=== PATIENT | female | born 1975 | race Caucasian/White ===

== ENCOUNTER 2021-05-13 20:39 | Observation (INO) | payer OTHER, SELFPAY ==
[2021-05-13 20:42] VITALS: BP 100/61; PULSE 92; RESP 17; TEMP 36.7; O2SAT 100; BMI 21.6
--- NOTE | 2021-05-13 20:52 | ED_ITS ---
HPI - Abdominal Pain General Chief Complaint: Abdominal Pain Stated Complaint: abd pain x1 day Time Seen by Provider: 05/13/21 20:41 Source: patient Mode of arrival: Wheelchair History of Present Illness HPI narrative: 45-year-old female nonsmoker with history of polycystic ovarian syndrome presents with her in the chief complaint of severe pelvic pain for the past day and a half. She states it came on rather suddenly yesterday morning and has been persistent and slowly worsening. She did have a small break in her discomfort for a bit this afternoon but it is severe again. It is worse with palpation and motion and improves minimally with rest. She has had nausea but no vomiting. She denies any change in medications or diet. She has been passing gas and has no change in bowel habits. She denies urinary symptoms such as dysuria, frequency or urgency. She is pretty convinced her menses is preparing to start. She denies vaginal bleeding or discharge. She denies any surgical history Related Data Home Medications Medication Instructions Recorded Confirmed tranexamic acid 2 tab PO TID 05/14/21 05/14/21 Allergies Allergy/AdvReac Type Severity Reaction Status Date / Time Penicillins Allergy Intermediate Rash Verified 05/13/21 20:45 Review of Systems Review of Systems Narrative: GENERAL: Denies chills, fatigue, malaise, fever, sweats. HEENT: Denies sinus pain, ear pain, sore throat, difficulty swallowing, dizzi ness. RESPIRATORY: Denies dyspnea, cough, wheezing, hemoptysis, sputum. CARDIOVASCULAR: Denies chest pain, palpitations, orthopnea, edema, GASTROINTESTINAL: See HPI : Denies dysuria, frequency, incontinence, hematuria, urinary retention. MUSCULOSKELETAL: denies weakness, joint pain, or bony pain SKIN: Denies rash, skin lesions, or other NEUROLOGIC: Denies weakness, headache, numbness, change in speech, confusion, seizures, incoordination. PSYCHIATRIC: No concerning psychosocial issues. 12 point review of systems is negative except for those stated above Patient History Social History household members: spouse Smoking Status: Never smoker Smoking Status: Never smoker alcohol intake frequency: 0-2 drinks per day Substance Use Type: does not use Exam Narrative Exam Narrative: GENERAL: [45 year old patient appears stated age. Well-developed patient, in obvious distress, tearful, rubbing her lower abdomen HEAD: Atraumatic. Normocephalic. EYES: Pupils equal round and reactive. Extraocular motions intact. No scleral icterus. No injection or drainage. ENT: Nose without bleeding, purulent drainage. Throat without erythema, to nsillar hypertrophy or exudate. Airway patent. NECK: Trachea midline. Non tender CARDIOVASCULAR: Regular rate and rhythm without murmurs, gallops, or rubs. RESPIRATORY: Clear to auscultation. Breath sounds equal bilaterally. No wheezes, rales, or rhonchi. GASTROINTESTINAL: Abdomen soft, tender across the lower abdomen with localized peritonitis in the right lower quadrant, increased pain with heel tap and psoas. EXTREMITIES: No edema or joint tenderness. BACK: Nontender without deformity or crepitance. No flank tenderness. NEURO: AOx3. SKIN: No rash or erythema of visible areas Initial Vital Signs Initial Vital Signs: Vital Signs Temperature 98.1 F 05/13/21 20:42 Pulse Rate 92 H 05/13/21 20:42 Respiratory Rate 17 05/13/21 20:42 Blood Pressure 100/61 05/13/21 20:42 Pulse Oximetry 100 05/13/21 20:42 Course Orders Ordered: ED Orders 05/13/21 20:54 CT abdomen pelvis w con Stat 05/13/21 20:55 Complete Blood Count AUTO DIFF Stat Comprehensive Metabolic Panel Stat Lactate (Lactic Acid) Stat Lipase Stat Test Serum,Qual Stat 05/13/21 22:33 COVID19 - ADMIT ([employer] swab/PCR) Stat Acetaminophen (Acetaminophen 325 Mg Tablet) 650 mg PO Q6HR PRN PRN Reason: Fever/Mild Pain (1-3) Hydrocodone Bitart/Acetaminophen (Hydrocodone/Acet 5/325 Tablet) 1 tab PO Q4HR PRN PRN Reason: Pain, Moderate (4-6) Last Admin: 05/14/21 05:42 Dose: 1 tab Documented by: Admin: 05/13/21 23:37 Dose: 1 tab Documented by: JENNIFER Celecoxib (Celecoxib 200 Mg Capsule) 200 mg PO BID [facility] Last Admin: 05/14/21 00:45 Dose: 200 mg Documented by: PITA Lactated Ringer's (Lactated Ringers) 1,000 mls @ 100 mls/hr IV CONT [facility] Last Admin: 05/14/21 01:43 Dose: 100 mls/hr Documented by: PITA Piperacillin Sod/Tazobactam (Sod 3.375 gm/ Sodium Chloride) 100 mls @ 25 mls/hr IV Q8H [facility]ODRIGO Last Admin: 05/14/21 05:43 Dose: 25 mls/hr Documented by: Infusion: 05/14/21 04:15 Dose: 0 mls/hr Documented by: Admin: 05/14/21 00:05 Dose: 25 mls/hr Documented by: JENNIFER Naloxone HCl (Naloxone 0.4 Mg/Ml Vial) 0.2 mg IV Q2MIN PRN PRN Reason: Opiate Reversal Discontinued Medications Hydromorphone HCl (Hydromorphone 0.5 Mg Inj) 0.5 mg IV NOW ONE Stop: 05/13/21 20:51 Last Admin: 05/13/21 21:03 Dose: 0.5 mg Documented by: JENNIFER Hydromorphone HCl (Hydromorphone 0.5 Mg Inj) 0.5 mg IV NOW ONE Stop: 05/14/21 00:17 Last Admin: 05/14/21 00:18 Dose: 0.5 mg Documented by: JENNIFER Sodium Chloride (Normal Saline 0.9%) 1,000 mls @ 1,000 mls/hr IV BOLUS ONE Stop: 05/13/21 21:49 Last Infusion: 05/13/21 22:08 Dose: 0 mls/hr Documented by: Admin: 05/13/21 21:04 Dose: 1,000 mls/hr Documented by: JENNIFER Ketorolac Tromethamine (Ketorolac 30 Mg/Ml Vial) 15 mg IV NOW ONE Stop: 05/13/21 20:51 Last Admin: 05/13/21 21:04 Dose: 15 mg Documented by: JENNIFER Ondansetron HCl (Ondansetron 4 Mg/2 Ml Inj) 4 mg IV NOW ONE Stop: 05/13/21 20:53 Last Admin: 05/13/21 21:04 Dose: 4 mg Documented by: JENNIFER Consultations Consultation #1: Discussed with on-call General surgery after CT results noted Vital Signs Vital signs: Vital Signs - 8 hr 05/13/21 20:42 Temperature 98.1 F Pulse Rate 92 H Respiratory Rate 17 Blood Pressure 100/61 Pulse Oximetry 100 MDM - Abdominal Pain Lab Data Result diagrams: 05/13/21 20:55 05/13/21 20:55 Labs: Lab Results 05/13/21 05/13/21 05/13/21 Range/Units 20:55 20:55 20:55 WBC 14.5 H (4.5-11.0) X10^3/uL RBC 3.86 L (4.0-5.2) X10^6/uL Hgb 12.0 (12.0-16.0) g/dL Hct 34.9 L (36-46) % MCV 90.3 (80-100) fL MCH 31.0 (26-34) PG MCHC 34.3 (30-36) % RDW 12.7 (11.6-14.8) % Plt Count 149 L (150-400) X10^3/uL Neut % (Auto) 85.4 H (50-75) % Lymph % (Auto) 8.8 L (25-40) % [place] % (Auto) 5.3 (3-14) % Eos % (Auto) 0.1 L (2-4) % Baso % (Auto) 0.4 (0-2) % Neut # (Auto) 41963 H (5822-9710) /uL Lymph # (Auto) 1300 (1026-9996) /uL [place] # (Auto) 800 (0-900) /uL Eos # (Auto) 0 (0-450) /uL Baso # (Auto) 100 (0-100) /uL Sodium 130 L (137-145) mmol/L Potassium 3.3 L (3.4-5.1) mmol/L Chloride 98 (98-107) mmol/L Carbon Dioxide 27 (22-32) mmol/L BUN 8 (7-17) mg/dL Creatinine 0.76 (0.52-1.04) mg/dL Estimated GFR > 60.0 (>60) mL/min BUN/Creatinine Ratio 10.5 (6-22) Glucose 121 H (70-100) mg/dL Lactate (0.7-2.1) mmol/L Calcium 9.2 (8.4-10.2) mg/dL Total Bilirubin 0.6 (0.2-1.3) mg/dL AST 22 (14-36) IU/L ALT 14 (<35) IU/L Alkaline Phosphatase 56 (38-126) U/L Total Protein 7.0 (6.3-8.2) g/dL Albumin 4.2 (3.5-5.0) g/dL Globulin 2.8 (1.7-4.1) g/dL Albumin/Globulin Ratio 1.5 (1.0-2.8) Lipase 85 (23-300) U/L Serum , Qual Negative (Negative) 05/13/21 Range/Units 20:55 WBC (4.5-11.0) X10^3/uL RBC (4.0-5.2) X10^6/uL Hgb (12.0-16.0) g/dL Hct (36-46) % MCV (80-100) fL MCH (26-34) PG MCHC (30-36) % RDW (11.6-14.8) % Plt Count (150-400) X10^3/uL Neut % (Auto) (50-75) % Lymph % (Auto) (25-40) % [place] % (Auto) (3-14) % Eos % (Auto) (2-4) % Baso % (Auto) (0-2) % Neut # (Auto) (9719-7001) /uL Lymph # (Auto) (7248-7648) /uL [place] # (Auto) (0-900) /uL Eos # (Auto) (0-450) /uL Baso # (Auto) (0-100) /uL Sodium (137-145) mmol/L Potassium (3.4-5.1) mmol/L Chloride (98-107) mmol/L Carbon Dioxide (22-32) mmol/L BUN (7-17) mg/dL Creatinine (0.52-1.04) mg/dL Estimated GFR (>60) mL/min BUN/Creatinine Ratio (6-22) Glucose (70-100) mg/dL Lactate 1.9 (0.7-2.1) mmol/L Calcium (8.4-10.2) mg/dL Total Bilirubin (0.2-1.3) mg/dL AST (14-36) IU/L ALT (<35) IU/L Alkaline Phosphatase (38-126) U/L Total Protein (6.3-8.2) g/dL Albumin (3.5-5.0) g/dL Globulin (1.7-4.1) g/dL Albumin/Globulin Ratio (1.0-2.8) Lipase (23-300) U/L Serum , Qual (Negative) Point of care testing: Urine Dip Bedside Urine Glucose Negative Bedside Urine Bilirubin - Negative Bedside Urine Ketone ++ 40 Urine Specific [place] 1.010 Bedside Urine Occult Blood - Negative Bedside Urine pH 7 Bedside Urine Protein - Negative Bedside Urine Urobilinogen - Negative Bedside Urine Nitrite - Negative Bedside Urine Leukocytes - Negative Esterase Imaging Data CT scan - abdomen/pelvis: Radiologist's Impression: [address] [address] [address] Scan Report Signed Patient: Collette Morales MR#: [id number] : 1975 Acct:[id number] Age/Sex: 45 / F Date of Service: 05/13/21 Loc: ED Accession Number: [id number] ?? Procedure: CT abdomen pelvis w con Ordering Provider: Jose Ramon Johnson D.O. PROCEDURE:? CT ABDOMEN PELVIS W CON ? INDICATIONS:? severe pelvic pain, localized peritonitis ? TECHNIQUE:? After the administration of intravenous contrast, axial sections acquired from the lung bases to the pubic symphysis.? Coronal and sagittal reformats were performed.? For radiation dose reduction, the following was used:? automated exposure control, adjustment of mA and/or kV according to patient size.? ? COMPARISON:? None. ? FINDINGS:? Image quality:? Excellent.? ? Lung bases:? Unremarkable. Heart:? No significant findings. ? ABDOMEN: Liver:? Unremarkable.? ? Gallbladder:? Unremarkable Biliary ducts:? Unremarkable.? ? Pancreas:? Unremarkable.? ? Spleen:? Unremarkable.? ? Adrenal Glands:? Unremarkable.? ? Kidneys and Ureters:? Unremarkable.? ? ? Stomach and Bowel:? Stomach appears unremarkable.? There are marked inflammatory changes in the right lower quadrant of the abdomen with inflammation and wall thickening involving the cecum.? There are inflammatory changes of the terminal ileum.? The appendix also appears distended and inflamed with possible appendicolith near the tip of the appendix.? Inflammatory changes noted throughout the right lower quadrant with associated reactive free fluid and wall thickening of adjacent segment of small bowel.? No definite evidence for perforation or abscess formation.? No evidence for bowel obstruction. ? Peritoneum:? Moderate amount of free fluid seen throughout the lower abdomen and pelvis.? No evidence for peritoneal enhancement or thickening.? No free air.? ? Ventral Wall: ? No hernias.? Abdominal Nodes:? No retroperitoneal or mesenteric adenopathy by size criteria.? Vessels:? Aorta and inferior vena cava are normal in size.? ? PELVIS: Pelvic Organs:? The uterus appears mildly enlarged.? This may be secondary to inflammatory changes seen in the pelvis and right lower quadrant.? No definite adnexal/ovarian mass lesions identified.? Likely bilateral ovarian follicles/cysts.? Bladder:? Unremarkable.? ? Pelvic Nodes: No enlarged lymph nodes.? Miscellaneous: No hernias are seen. ? ? ? Bones:? Unremarkable. ? ? ? IMPRESSION:? Marked inflammatory changes of the right lower quadrant and pelvis likely related to suspected acute appendicitis.? No free air identified.? No definite abscess seen.? Inflammatory changes appear to involve multiple segments of adjacent small bowel as the epicenter of findings is near the cecum and appendix. ? Possible inflammatory changes the uterus likely related to adjacent inflammatory process. ?Consider further evaluation with pelvic ultrasound.? ? Findings were discussed with Dr. Johnson at 2235 hrs ? ? Dictated by: Timmy Sosa M.D. on 05/13/2021 at 22:20 ? ? Approved by: Timmy Sosa M.D. on 05/13/2021 at 22:35 ? Discharge Plan Departure Patient Disposition: Admitted As Inpatient Clinical Impression: Appendicitis Admit Date/Time: 05/13/21 22:50 Admit Provider: Elisa Ghotra
--- NOTE | 2021-05-13 20:54 | DI.CT.S_ITS ---
PROCEDURE: CT ABDOMEN PELVIS W CON INDICATIONS: severe pelvic pain, localized peritonitis TECHNIQUE: After the administration of intravenous contrast, axial sections acquired from the lung bases to the pubic symphysis. Coronal and sagittal reformats were performed. For radiation dose reduction, the following was used: automated exposure control, adjustment of mA and/or kV according to patient size. COMPARISON: None. FINDINGS: Image quality: Excellent. Lung bases: Unremarkable. Heart: No significant findings. ABDOMEN: Liver: Unremarkable. Gallbladder: Unremarkable Biliary ducts: Unremarkable. Pancreas: Unremarkable. Spleen: Unremarkable. Adrenal Glands: Unremarkable. Kidneys and Ureters: Unremarkable. Stomach and Bowel: Stomach appears unremarkable. There are marked inflammatory changes in the right lower quadrant of the abdomen with inflammation and wall thickening involving the cecum. There are inflammatory changes of the terminal ileum. The appendix also appears distended and inflamed with possible appendicolith near the tip of the appendix. Inflammatory changes noted throughout the right lower quadrant with associated reactive free fluid and wall thickening of adjacent segment of small bowel. No definite evidence for perforation or abscess formation. No evidence for bowel obstruction. Peritoneum: Moderate amount of free fluid seen throughout the lower abdomen and pelvis. No evidence for peritoneal enhancement or thickening. No free air. Ventral Wall: No hernias. Abdominal Nodes: No retroperitoneal or mesenteric adenopathy by size criteria. Vessels: Aorta and inferior vena cava are normal in size. PELVIS: Pelvic Organs: The uterus appears mildly enlarged. This may be secondary to inflammatory changes seen in the pelvis and right lower quadrant. No definite adnexal/ovarian mass lesions identified. Likely bilateral ovarian follicles/cysts. Bladder: Unremarkable. Pelvic Nodes: No enlarged lymph nodes. Miscellaneous: No hernias are seen. Bones: Unremarkable. IMPRESSION: Marked inflammatory changes of the right lower quadrant and pelvis likely related to suspected acute appendicitis. No free air identified. No definite abscess seen. Inflammatory changes appear to involve multiple segments of adjacent small bowel as the epicenter of findings is near the cecum and appendix. Possible inflammatory changes the uterus likely related to adjacent inflammatory process. Consider further evaluation with pelvic ultrasound. Findings were discussed with Dr. Johnson at 2235 hrs Dictated by: Timmy Sosa M.D. on 05/13/2021 at 22:20 Approved by: Timmy Sosa M.D. on 05/13/2021 at 22:35
[2021-05-13] MEDS: HYDROMORPHONE 0.5 MG INJ IV (21:03)
[2021-05-13] MEDS: KETOROLAC 30 MG/ML VIAL 15 MG IV (21:04)
[2021-05-13] MEDS: SODIUM CHLORIDE 0.9% 1,000 ML 1000 ML IV (21:04)
[2021-05-13] MEDS: ONDANSETRON 4 MG/2 ML INJ IV (21:04)
[2021-05-13 21:06] LABS: Add Manual Diff / Slide Review NO; Basophils Absolute Auto 100 /uL (0-100); Basophils Percent Auto 0.4 % (0-2); Eosinophils Absolute Auto 0 /uL (0-450); Eosinophils Percent Auto 0.1 % (2-4); Hematocrit 34.9 % (36-46); Lymphocytes Absolute Auto 1300 /uL (1100-4500); Lymphocytes Percent Auto 8.8 % (25-40); Mean Corpuscular HGB Conc 34.3 % (30-36); Mean Corpuscular Volume 90.3 fL (80-100); Monocytes Absolute Auto 800 /uL (0-900); Monocytes Percent Auto 5.3 % (3-14); Neutrophils Absolute Auto 12400 /uL (1500-7000); Neutrophils Percent Auto 85.4 % (50-75); Platelet Count 149 X10^3/uL (150-400); Red Blood Cell Count 3.86 X10^6/uL (4.0-5.2); Red Cell Distribution Width 12.7 % (11.6-14.8); White Blood Cell Count 14.5 X10^3/uL (4.5-11.0)
[2021-05-13 21:19] LABS: Lactate (Lactic Acid) 1.9 mmol/L (0.7-2.1)
[2021-05-13 21:20] LABS: Alanine Aminotransferase 14 IU/L (<35); Albumin 4.2 g/dL (3.5-5.0); Albumin Globulin Ratio 1.5 (1.0-2.8); Alkaline Phosphatase 56 U/L (38-126); Aspartate Aminotransferase 22 IU/L (14-36); BUN Creatinine Ratio 10.5 (6-22); Bilirubin Total 0.6 mg/dL (0.2-1.3); Blood Urea Nitrogen 8 mg/dL (7-17); Calcium 9.2 mg/dL (8.4-10.2); Carbon Dioxide 27 mmol/L (22-32); Chloride 98 mmol/L (98-107); Estimated Glomerular Filt Rate > 60.0 mL/min (>60); Globulin 2.8 g/dL (1.7-4.1); Glucose 121 mg/dL (70-100); HEMOLYSIS < 15 (0-50); Lipase 85 U/L (23-300); Potassium 3.3 mmol/L (3.4-5.1); Sodium 130 mmol/L (137-145)
[2021-05-13 21:28] LABS: Pregnancy Test Serum,Qual Negative (Negative)
--- NOTE | 2021-05-13 21:51 | PC.NURSE ---
to ct per stretcher
[2021-05-13 23:00] VITALS: O2SAT 95
[2021-05-13] MEDS: HYDROCODONE/ACET 5/325 TABLET 1 TAB PO (23:37)
[2021-05-13 23:46] VITALS: BMI 21.6
[2021-05-14] VITALS (19 sets, daily range): BP systolic 86–110; BP diastolic 46–86; PULSE 55–103; RESP 13–21; TEMP 36.2–37.6; O2SAT 95–100; BMI 21.6
--- NOTE | 2021-05-14 | PATH_ITS ---
[facility] Accession Number: [id number] . 01 Material submitted: . appendix - APPENDIX . 02 Diagnosis: Appendix, Appendectomy: Perforated acute appendicitis with serositis. No evidence of neoplasm. MRV 05/19/2021 1053 Local . 02 Electronically signed: . Alfonso Gaitan MD, PhD, Pathologist NPI- [id number] . 01 Gross description: . The specimen is received in formalin labeled with the patient's name and appendix is a vermiform appendix, which measures 6.5 cm in length x 1.0 cm in maximum diameter with an attached mesoappendix, which measures 6.5 x 1.5 cm. The serosa of the appendix is red-brown, hemorrhagic and covered with gonsalez-yellow fibrinous type exudate focally. A possible perforation is identified 2.5 cm from the proximal end. The lumen is slightly dilated and is filled with red hemorrhagic tissue. The wall has an average thickness of 0.2 cm. No discrete masses are identified. The periappendiceal soft tissue has a yellow fatty cut surface with areas of hemorrhage. Also, received in the container is another fragment which is stapled and measures 1.5 x 1.0 x 0.7 cm. This appears to be the proximal stapled resection margin. Shear Operator sections are submitted as follows: . A1 - Proximal resection margin en face (blue ink), one piece. A2 - Shear Operator cross sections, two pieces. A3 - Longitudinal section at the tip of the appendix, one piece. ([id number]) /[facility] 05/17/2021 1621 Local . 02 Pathologist provided ICD-10: K35.20 . 02 CPT . 509996 Performed at: 01 [facility] [address] [place] [address], [place], [place] [id number] MD Toby Roland MD Phone: [phone] Performed at: 02 [facility] [address] [place] [id number] MD Aaliyah Arnold MD Phone: [phone]
[2021-05-14] MEDS: PIPERACILLIN/TAZO 3.375 GM in SODIUM CHLORIDE 0.9% 100 ML 25 ML IV ×2 (00:05→05:43)
[2021-05-14] MEDS: HYDROMORPHONE 0.5 MG INJ (00:15)
[2021-05-14] MEDS: HYDROMORPHONE 0.5 MG INJ IV ×3 (00:18→21:35)
--- NOTE | 2021-05-14 00:24 | PC.NURSE ---
report called to Sandra
[2021-05-14] MEDS: CELECOXIB 200 MG CAPSULE PO ×3 (00:45→21:36)
[2021-05-14] MEDS: LACTATED RINGERS 1,000 ML 100 ML IV ×2 (01:43→14:46)
[2021-05-14 02:36] LABS: COVID19 - ADMIT (NP swab/PCR) Negative (Negative)
[2021-05-14] MEDS: HYDROCODONE/ACET 5/325 TABLET 1 TAB PO ×3 (05:42→14:46)
--- NOTE | 2021-05-14 09:21 | PM.HP.1 ---
History of Present Illness History of Present Illness Date Patient Seen: 05/14/21 Time Patient Seen: 09:21 Date of Onset of Symptoms: 05/13/21 Chief complaint: abd pain x1 day Narrative: Abdominal pain for over 36 hrs. She thought it was mentral pain initially until it worsened and localized in the RLQ. Nausea, anorexia, no diarrhea or emesis. Her does have unusually heavy periods that require TXA. Patient History Family & Social History Social History: household members spouse Prior Living Arrangements House Safety & Behavioral: Feels Safe in Current Yes Environment Been Physically Hurt or No Threatened By a Person Suicidal Ideation Description None Suicide Plan Description No Plan Tobacco & Substance use: Smoking Status Never smoker alcohol intake frequency 0-2 drinks per day Substance Use Type does not use Meds Home Medications and Allergies Home Medications Medication Instructions Recorded Confirmed Type tranexamic acid 2 tab PO TID 05/14/21 05/14/21 History Allergies Allergy/AdvReac Type Severity Reaction Status Date / Time Penicillins Allergy Intermediate Rash Verified 05/13/21 20:45 Review of Systems Review of Systems ROS: Yes All systems reviewed with the patient and are negative except as otherwise documented Exam Vital Signs (past 8 hours): - 05/14/21 06:00 05/14/21 09:10 Temperature 98.7 F Pulse Rate 67 Respiratory Rate 16 Blood Pressure 94/58 L Pulse Oximetry 98 97 Oxygen Delivery Method Room Air Oxygen Flow Rate 0 Const General: cooperative Nutritional Appearance: underweight Orientation: alert and oriented x3 HENLA Head: normocephalic and atraumatic Ears: hearing grossly normal bilaterally Face and sinus: normal facial exam Eyes Periorbital: periorbital findings normal Sclera: sclerae normal Neck Neck: trachea midline Chest Chest: normal inspection of the chest Resp Effort & Inspection: normal respiratory effort and able to speak in complete sentences Cardio Rate: tachycardic Rhythm: regular rhythm GI Palpation: tender (lower abdominal tenderness to palpation right greater than left. ) Skin General: no rashes or lesions noted and elasticity normal Neuro General: patient alert and patient oriented x3 Cognition: normal cognition Speech: speech normal Extrem General: full ROM Psych Appearance: grossly normal Affect: normal affect Attitude: cooperative Judgment: judgment good Objective Labs Result Diagrams: 05/13/21 20:55 05/13/21 20:55 Labs: Laboratory Results - last 24 hr 05/13/21 05/13/21 05/13/21 20:55 20:55 20:55 WBC 14.5 H RBC 3.86 L Hgb 12.0 Hct 34.9 L MCV 90.3 MCH 31.0 MCHC 34.3 RDW 12.7 Plt Count 149 L Neut % (Auto) 85.4 H Lymph % (Auto) 8.8 L [place] % (Auto) 5.3 Eos % (Auto) 0.1 L Baso % (Auto) 0.4 Neut # (Auto) 17559 H Lymph # (Auto) 1300 [place] # (Auto) 800 Eos # (Auto) 0 Baso # (Auto) 100 Sodium 130 L Potassium 3.3 L Chloride 98 Carbon Dioxide 27 BUN 8 Creatinine 0.76 Estimated GFR > 60.0 BUN/Creatinine Ratio 10.5 Glucose 121 H Lactate Calcium 9.2 Total Bilirubin 0.6 AST 22 ALT 14 Alkaline Phosphatase 56 Total Protein 7.0 Albumin 4.2 Globulin 2.8 Albumin/Globulin Ratio 1.5 Lipase 85 Serum , Qual Negative SARS-CoV-2 (PCR) 05/13/21 05/14/21 20:55 00:10 WBC RBC Hgb Hct MCV MCH MCHC RDW Plt Count Neut % (Auto) Lymph % (Auto) [place] % (Auto) Eos % (Auto) Baso % (Auto) Neut # (Auto) Lymph # (Auto) [place] # (Auto) Eos # (Auto) Baso # (Auto) Sodium Potassium Chloride Carbon Dioxide BUN Creatinine Estimated GFR BUN/Creatinine Ratio Glucose Lactate 1.9 Calcium Total Bilirubin AST ALT Alkaline Phosphatase Total Protein Albumin Globulin Albumin/Globulin Ratio Lipase Serum , Qual SARS-CoV-2 (PCR) Negative Assessment & Plan Assessment & Plan narrative: Ruptured appendicitis. abnormal thickened uterine wall (followed by COMMUNITY OUTREACH COORDINATOR). negative Plan: Lap appy and antibiotics as appropriate. There is a possibility that delay results in a more complex future surgery or treatment. COVID-19 COVID-19 status: Negative Time Spent With Patient Time with patient: 30 to 49 minutes with 50% spent counseling/coordinating care Critical Care time: I spent a total of [] minutes of critical care time on this patient's care today; this time is exclusive of procedural time. Quality VTE Deep Vein Thrombosis/Pulmonary Embolism Present on Admission: No
[2021-05-14] MEDS: LACTATED RINGERS 1,000 ML 42 ML IV ×2 (10:24→12:17)
--- NOTE | 2021-05-14 11:25 | SUR.OPER ---
Supine on padded OR bed, head on pillow, arms padded and tucked at sides, legs uncrossed, safety belt at thigh, tape over blanket over lower legs .
[2021-05-14] MEDS: BUPIVACAINE 0.25% (PF) 30 ML, EPINEPHrine 0.15 MG INJ (11:31)
--- NOTE | 2021-05-14 11:39 | SUR.OPER ---
2 RINGS IN LABELED CONTAINER TO PACU WITH PATIENT WELL GLASSES.
--- NOTE | 2021-05-14 12:04 | PM.OP.1 ---
Operative Date/Time/Diagnoses Date of procedure: 05/14/21 Time of procedure: 12:04 Pre-op diagnosis: ruptured appendicitis Post-op diagnosis: same Procedure & Clinicians Procedure: Lap appy Same procedure as scheduled: Yes Indications: Ruptured appendicitis Surgeon: Elisa Ghotra Click Yes if Unassisted: Yes Anesthesia Type: General Operative Notes Findings: Ruptured appendicitis Closure Type: primary Specimen(s): other (Appendix) Applied: drain(s) (15 Slovenian Yoel drain) Estimated Blood Loss (mL): 10 Procedure in detail: Preop diagnosis: Ruptured appendicitis Postop diagnosis: Same Operative procedure: Laparoscopic appendectomy Anesthetic: General with ET tube intubation Findings: Ruptured appendicitis, healthy base of the appendix. Urinary retention Procedure: Patient placed in a supine position. Prepped and draped sterile fashion. Infraumbilical port site was placed using an open technique and a 12 mm port. Insufflation began all the ports were placed under direct vision including a 5 mm port in the suprapubic area and a 5 mm port in left lateral abdomen. Appendix was identified and lifted cephalad for exposure. There was a gaping hole on the medial aspect of the appendix which filled fecal material into the local site. This was retrieved and placed into the specimen bag along with the appendix at the appropriate time. Mesentery was taken down with electrocautery. Base appendix was amputated with a LIZZ stapling device. Appendix and associated stool balls were placed into an Endo-Catch bag and pulled through the infraumbilical port site intact. I irrigated the abdomen to a clear return. And then placed a 15 Slovenian drain into the pelvis looping up to the operative site. This was brought out through the existing suprapubic port. Suture to the skin with 3-0 nylon. I then removed all ports and began closure. Closure consisted of interrupted 0 Vicryl for fascial closure of the infraumbilical port site. Skin was closed with a running 4-0 Vicryl. Steri-Strips and sterile dressings were placed. Patient was awakened, extubated, taken to recovery room in stable condition. Needle, instrument, sponge counts were correct Blood loss: 10 mL Specimen: Appendix Complications: none Post-operative Condition: stable Disposition: PACU
[2021-05-14] MEDS: HYDROMORPHONE 2 MG INJ IV (12:16)
[2021-05-14] MEDS: ONDANSETRON 4 MG/2 ML INJ IV (12:17)
--- NOTE | 2021-05-14 12:38 | SUR.PHASEI ---
Patient responsive to verbal stimuli; vss; pain 3/10; denies any nausea; emptied 150 mls of pus-appearing output from OTTONIEL drain; abdomen soft and flat; small amount of drainage noted to abdominal dressing;
--- NOTE | 2021-05-14 13:23 | PC.NURSE ---
Pt returned from PACU. A/O, but drowsy, denies pain, denies nausea. Drsgs to abdomen intact left one with yellow drainage. OTTONIEL with mod amt of yellow drainage. IVF reconnected. Call light within reach.
--- NOTE | 2021-05-14 14:18 | CM.IDA ---
Initial DCP Assessment Note Pt is a 45 yo female, resident of [place], admitted for appendicitis and taken to the OR this morning for lap appy by Dr Ghotra PCP: TRACIE Robertson, [place] Payer: [facility] No needs expected upon DC according to RN, supportive spouse to transport home when medically cleared. EVELIO Corrales Discharge Planning/Care Management CM Discharge Assessment Start: 05/14/21 14:14 Freq: Status: Active Protocol: Document 05/14/21 14:14 GLEN (Rec: 05/14/21 14:18 [id number]) Discharge Planning Assessment Assigned Manager Route EVELIO Cortes DPOA/Assigned Designee Name [place], spouse Contact Information [phone] Advance Directives? No History Provided By Medical Record Prior Living Arrangements House Household Members spouse Type of transporation used prior to Drives own vehicle admit Independent with ADL's Yes Is patient alert and oriented? Yes Barriers to Discharge No Comment Indp and active at baseline, Home w/spouse, no needs expected Discharge Plan Home Transportation Arrangement Spouse Referrals Initiated None needed
[2021-05-14] MEDS: HYDROCODONE/ACET 5/325 TABLET 2 TAB PO ×2 (16:43→23:35)
[2021-05-14] MEDS: CIPROFLOXACIN 250 MG TABLET 500 MG PO (21:40)
[2021-05-15] MEDS: HYDROMORPHONE 0.5 MG INJ IV ×2 (04:57→11:42)
[2021-05-15 05:47] VITALS: BP 93/51; PULSE 55; RESP 18; TEMP 36.8; O2SAT 97
[2021-05-15 05:55] LABS: Add Manual Diff / Slide Review NO; Basophils Absolute Auto 0 /uL (0-100); Basophils Percent Auto 0.1 % (0-2); Eosinophils Absolute Auto 0 /uL (0-450); Eosinophils Percent Auto 0.1 % (2-4); Hematocrit 30.4 % (36-46); Hemoglobin 10.6 g/dL (12.0-16.0); Lymphocytes Absolute Auto 300 /uL (1100-4500); Lymphocytes Percent Auto 3.5 % (25-40); Mean Corpuscular HGB Conc 34.8 % (30-36); Mean Corpuscular Hemoglobin 31.7 PG (26-34); Mean Corpuscular Volume 90.9 fL (80-100); Monocytes Absolute Auto 400 /uL (0-900); Monocytes Percent Auto 4.6 % (3-14); Neutrophils Absolute Auto 7800 /uL (1500-7000); Neutrophils Percent Auto 91.7 % (50-75); Platelet Count 114 X10^3/uL (150-400); Red Blood Cell Count 3.34 X10^6/uL (4.0-5.2); Red Cell Distribution Width 12.9 % (11.6-14.8); White Blood Cell Count 8.5 X10^3/uL (4.5-11.0)
[2021-05-15] MEDS: CIPROFLOXACIN 250 MG TABLET 500 MG PO (07:26)
[2021-05-15 09:07] VITALS: BP 95/50; PULSE 60; RESP 16; TEMP 36.6; O2SAT 95
[2021-05-15 09:45] VITALS: PULSE 60; RESP 16; O2SAT 95
[2021-05-15 10:00] VITALS: O2SAT 95
[2021-05-15] MEDS: CELECOXIB 200 MG CAPSULE PO (10:05)
[2021-05-15] MEDS: HYDROCODONE/ACET 5/325 TABLET 2 TAB PO (10:06)
--- NOTE | 2021-05-15 10:14 | PM.DS.1 ---
History of Present Illness History of Present Illness Date Patient Seen: 05/15/21 Time Patient Seen: 10:14 Date of Onset of Symptoms: 05/15/21 Chief complaint: abd pain x1 day Narrative: Abdominal pain for over 36 hrs. She thought it was mentral pain initially until it worsened and localized in the RLQ. Nausea, anorexia, no diarrhea or emesis. Her does have unusually heavy periods that require TXA. Discharge Providers Provider Date of admission: 05/13/21 22:50 Discharge Date: 05/15/21 Discharge provider: Elisa Ghotra MD Summary Hospital Course Discharge Diagnosis: ruptured appendicitis Hospital Course: IV antibiotics, Lap Appy with drain placement. Status at Discharge Cognitive/behavioral status at discharge: calm Functional status at discharge: independent ambulation Overall status at discharge: patient is progressing back to baseline Time Spent with Patient Time spent: Less than 30 minutes Exam Vital Signs (past 8 hours): - 05/15/21 05:47 05/15/21 09:07 Temperature 98.2 F 97.8 F Pulse Rate 55 L 60 Respiratory Rate 18 16 Blood Pressure 93/51 L 95/50 L Pulse Oximetry 97 95 Oxygen Delivery Method Room Air Oxygen Flow Rate 0 Narrative Exam Narrative: abdomen is soft, wound intact. drain is murky. WBC is 8. no fever. Objective Labs Result Diagrams: 05/15/21 04:45 05/13/21 20:55 Labs: Laboratory Results - last 24 hr 05/15/21 04:45 WBC 8.5 RBC 3.34 L Hgb 10.6 L Hct 30.4 L MCV 90.9 MCH 31.7 MCHC 34.8 RDW 12.9 Plt Count 114 L Neut % (Auto) 91.7 H Lymph % (Auto) 3.5 L Mckenzie % (Auto) 4.6 Eos % (Auto) 0.1 L Baso % (Auto) 0.1 Neut # (Auto) 7800 H Lymph # (Auto) 300 L Mckenzie # (Auto) 400 Eos # (Auto) 0 Baso # (Auto) 0 PFSH Social History household members: spouse Smoking Status: Never smoker Discharge Assessment & Plan Assessment and Plan Assessment: ruptured appendicitis Plan of Treatment: no complications after lap appy home today with drain drain removal in office later this week 5 days Cipro Discharge Plan Discharge Plan Patient Disposition: Home Discharge orders & Medications Prescriptions: New celecoxib [Celebrex] 200 mg Capsule 200 mg PO BID Qty: 20 0RF hydrocodone-acetaminophen 5-325 mg Tablet 1 tab PO Q4HR PRN (Reason: Pain, Moderate (4-6)) Qty: 20 0RF ciprofloxacin HCl 250 mg Tablet 500 mg PO 0700,2100 Qty: 10 0RF Continued tranexamic acid 650 mg tablet 2 tab PO TID 0RF Diet/Activity/Treatments Diet: Diet as Tolerated Activity: no lifting greater than 15 lbs for 4 weeks Cold/Heat Therapy: ice pack to abdomen for comfort Other treatments: empty drain daily and as needed. Follow up 1-2 days for drain removal Skin/Wound/Dressing Care Skin care: can shower anytime. no soaking in bath for 2 weeks Dressing: remove outer dressing anytime and leave steristrips on for 10 days. Visit Report/Discharge Packet Instructions: DI for an Appendectomy Stand Alone Forms: Surgery Discharge Discharge Data Attending Provider: Elisa Ghotra VTE Deep Vein Thrombosis/Pulmonary Embolism Present on Admission: No
== END 2021-05-15 13:00 | disposition home or self-care (01) ==
LOC: ED 20:50 → AC 22:51
PROVIDERS: Admitting Provider Surgery; Emergency Provider Emergency Medicine; Referring Provider Emergency Medicine; Visit Provider Surgery
PROC: 0DTJ4ZZ Resection of Appendix, Percutaneous Endoscopic Approach (ICD-10-PCS; CPT 44970; principal; 2021-05-14 11:30)
DX: K35.32 Acute appendicitis with perforation, localized peritonitis, and gangrene, without abscess (principal); R33.9 Retention of urine, unspecified; Z20.822 Contact with and (suspected) exposure to COVID-19
CPT/HCPCS: 44970; 36415; 74177; 80053; 81003; 83605; 83690; 84703; 85025; 87635; 94760; 96361; 96365; 96366; 96375; 96376; 99219; 99284; C9803; G0378; J0171; J1100; J1170; J1885; J2250; J2405; J2543; J2704; J3010; Q9967

== ENCOUNTER → 2021-05-18 12:18 | Outpatient (CLI) | payer OTHER, SELFPAY ==
[2021-05-13 23:46] VITALS: BMI 21.6
[2021-05-18 13:41] LABS: Add Manual Diff / Slide Review NO; Basophils Absolute Auto 0 /uL (0-100); Basophils Percent Auto 0.5 % (0-2); Eosinophils Absolute Auto 100 /uL (0-450); Eosinophils Percent Auto 1.2 % (2-4); Hemoglobin 11.8 g/dL (12.0-16.0); Lymphocytes Absolute Auto 500 /uL (1100-4500); Lymphocytes Percent Auto 9.1 % (25-40); Mean Corpuscular HGB Conc 33.7 % (30-36); Mean Corpuscular Hemoglobin 30.5 PG (26-34); Mean Corpuscular Volume 90.4 fL (80-100); Monocytes Absolute Auto 600 /uL (0-900); Monocytes Percent Auto 10.4 % (3-14); Neutrophils Absolute Auto 4700 /uL (1500-7000); Neutrophils Percent Auto 78.8 % (50-75); Platelet Count 271 X10^3/uL (150-400); Red Blood Cell Count 3.87 X10^6/uL (4.0-5.2); Red Cell Distribution Width 13.3 % (11.6-14.8)
== END ==
PROVIDERS: PCP Physician Assistant Medical; Referring Provider Surgery; Visit Provider Surgery
DX: K37 Unspecified appendicitis (principal)
CPT/HCPCS: 36415; 85025

== ENCOUNTER → 2021-05-26 10:29 | Outpatient (CLI) | payer OTHER, SELFPAY ==
[2021-05-13 23:46] VITALS: BMI 21.6
[2021-05-26 13:01] LABS: Add Manual Diff / Slide Review NO; Basophils Absolute Auto 0 /uL (0-100); Basophils Percent Auto 0.4 % (0-2); Eosinophils Absolute Auto 0 /uL (0-450); Eosinophils Percent Auto 0.6 % (2-4); Hematocrit 33.6 % (36-46); Hemoglobin 11.4 g/dL (12.0-16.0); Lymphocytes Absolute Auto 400 /uL (1100-4500); Lymphocytes Percent Auto 4.6 % (25-40); Mean Corpuscular HGB Conc 33.9 % (30-36); Mean Corpuscular Hemoglobin 30.6 PG (26-34); Mean Corpuscular Volume 90.3 fL (80-100); Monocytes Absolute Auto 700 /uL (0-900); Monocytes Percent Auto 8.6 % (3-14); Neutrophils Absolute Auto 7300 /uL (1500-7000); Neutrophils Percent Auto 85.8 % (50-75); Platelet Count 447 X10^3/uL (150-400); Red Blood Cell Count 3.72 X10^6/uL (4.0-5.2); White Blood Cell Count 8.5 X10^3/uL (4.5-11.0)
== END ==
PROVIDERS: PCP Physician Assistant Medical; Referring Provider Surgery; Visit Provider Surgery
DX: K37 Unspecified appendicitis (principal)
CPT/HCPCS: 36415; 85025

== ENCOUNTER → 2021-05-26 11:31 | Outpatient (CLI) | payer OTHER, SELFPAY ==
[2021-05-13 23:46] VITALS: BMI 21.6
--- NOTE | 2021-05-26 11:32 | DI.CT.S_ITS ---
PROCEDURE: CT ABDOMEN PELVIS W CON INDICATIONS: Postop abscess rule out TECHNIQUE: After the administration of oral and intravenous contrast, axial sections were acquired from the lung bases to the pubic symphysis. Coronal and sagittal reformats were performed. For radiation dose reduction, the following was used: automated exposure control, adjustment of mA and/or kV according to patient size. COMPARISON:[facility], CT, CT ABDOMEN PELVIS W CON, 05/13/2021, 21:50. FINDINGS: Image quality: Excellent. Lung bases: Unremarkable. Heart: No significant findings. ABDOMEN: Liver: Unremarkable. Gallbladder: Unremarkable. Biliary ducts: Unremarkable. Pancreas: Unremarkable. Spleen: Unremarkable. Adrenal Glands: Unremarkable. Kidneys and Ureters: Unremarkable. Stomach and Bowel: Stomach appears unremarkable. Interval postsurgical changes of appendectomy. There is inflammatory stranding in the right lower quadrant, extending into the pelvis, likely related to recent surgery. There are 2 irregular, possibly rim enhancing collections identified in the lower pelvis measuring 3.2 x 1.8 cm for the more anterior collection and 3.5 by 3.2 cm the more posterior collection (image 64/series 2). No internal locules of gas. No definite communication with the surgical site. These may represent fluid-filled segments of bowel as there are multiple other segments of adjacent bowel demonstrating minimal thickening and increased enhancement. These may represent secondary reactive changes from recent surgery versus reaction from prior appendicitis. No free air is noted. Peritoneum: No abnormal intraperitoneal fluid. No free air. Ventral Wall: Postsurgical changes of the anterior abdominal wall from recent appendectomy. There is a rim enhancing fluid collection noted superficially in the subcutaneous soft tissues near the level of the umbilicus measuring approximately 3.0 x 2.0 cm (image 44, series 2) there may be a small component extending deep to the anterior abdominal wall measuring 2.3 cm x 2.1 cm (image 39/series 2 and image 45/series 5). Is appears to be a bilobed fluid collection. Abdominal Nodes: No retroperitoneal or mesenteric adenopathy by size criteria. Vessels: Aorta and inferior vena cava are normal in size. PELVIS: Pelvic Organs: Unremarkable. Bladder: Unremarkable. Pelvic Nodes: No enlarged lymph nodes. Miscellaneous: No inguinal hernias are seen. Bones: Unremarkable. IMPRESSION: 1. Postsurgical changes from interval appendectomy without definite abscess seen in the right lower quadrant/pelvis. There are 2 irregular rim enhancing collections noted in the pelvis which do not demonstrate definitive communication with the surgical site. These may represent focal fluid-filled segments of bowel with increased wall enhancement. Several other adjacent segments of bowel in the right lower quadrant also demonstrate mild wall thickening and increased enhancement. Findings are likely secondary to reactive changes of recent infection and/or surgical procedure. 2. At the umbilical port site of recent procedure, there is a bilobed rim enhancing fluid collection involving the subcutaneous fat with extension into the peritoneal cavity directly below the anterior abdominal wall. Each lobe measures approximately 3.0 cm in size and may represent a postsurgical fluid collection versus early abscess. Recommend correlation with location of patient's symptoms. Findings were discussed with Dr. Velazquez telephonically at 1550hrs. Dictated by: Timmy Sosa M.D. on 05/26/2021 at 15:11 Approved by: Timmy Sosa M.D. on 05/26/2021 at 15:54
== END ==
PROVIDERS: PCP Physician Assistant Medical; Referring Provider Surgery; Visit Provider Surgery
DX: K37 Unspecified appendicitis (principal); Z98.890 Other specified postprocedural states
CPT/HCPCS: 36415; 74177; 85025; Q9967

== ENCOUNTER 2021-05-29 14:12 | Emergency (ER) | payer OTHER, SELFPAY ==
[2021-05-29 14:27] VITALS: BP 128/86; PULSE 79; RESP 19; TEMP 37.1; O2SAT 98; BMI 21.6
--- NOTE | 2021-05-29 14:28 | ED.WOUNDLAC ---
HPI - Wound/Laceration General Chief Complaint: Wound/Laceration Stated Complaint: post surgery infection Time Seen by Provider: 05/29/21 14:28 History of Present Illness HPI narrative: 46-year-old woman with perforated appendicitis with laparoscopic appendectomy on May 14. Time of surgery drain was placed she was discharged home with the drain and saw Dr. Smith on the with drains removed. She was seen by Dr. Velazquez on the with concerns for worsening infection and a CT scan of the abdomen was ordered. Dr. Smith was able to drain the fluid collection/abscess around the periumbilical incision and that is feeling better and she was started on levofloxacin, metronidazole and Bactrim. Over the last number of days she has continued to feel generally unwell. She has had a minor cough but no specific fevers. Since starting antibiotics 36 hours ago she notes that symptoms have gotten progressively worse. She notes that she started her menstrual cycle to days after the appendicitis and has been having irregular bleeding which is not entirely unusual for her. She notes that she has been like that nauseated and significantly fatigued and comes in today for further evaluation. She denies palpitations, headaches. She notes that the postsurgical pain and lower pelvic pain is still notable. She did note have your cramps with her menstrual cycle. Her was recently diagnosed COVID. They are both vaccinated and boosted. Related Data Home Medications Medication Instructions Recorded Confirmed tranexamic acid 2 tab PO TID 05/14/21 05/26/21 Previous Rx's Medication Instructions Recorded celecoxib 200 mg capsule (Celebrex) 200 mg PO BID #20 cap 05/14/21 ciprofloxacin HCl 250 mg tablet 500 mg PO 0700,2100 #10 tab 05/14/21 magnesium citrate 150 ml PO ONCE #296 ml 05/18/21 ondansetron HCl 4 mg tablet 4 mg PO Q6H #30 tab 05/18/21 (Zofran) sulfamethoxazole 800 1 tab PO BID #10 tab 05/25/21 mg-trimethoprim 160 mg tablet (Bactrim DS) levofloxacin 500 mg tablet 500 mg PO DAILY #7 tab 05/27/21 metronidazole 500 mg tablet 500 mg PO TID #21 tab 05/27/21 clindamycin HCl 300 mg capsule 300 mg PO TID 5 Days #15 cap 05/29/21 Allergies Allergy/AdvReac Type Severity Reaction Status Date / Time Penicillins Allergy Intermediate Rash Verified 05/29/21 14:26 metronidazole AdvReac Intermediate Nausea Verified 05/29/21 15:17 Review of Systems Review of Systems Narrative: Remainder of complete review of systems is otherwise unremarkable except for that included in the HPI. Patient History Social History household members: spouse Smoking Status: Never smoker Smoking Status: Never smoker alcohol intake frequency: 0-2 drinks per day Substance Use Type: does not use Exam Initial Vital Signs Initial Vital Signs: Vital Signs Temperature 98.7 F 05/29/21 14:27 Pulse Rate 79 05/29/21 14:27 Respiratory Rate 19 05/29/21 14:27 Blood Pressure 128/86 05/29/21 14:27 Pulse Oximetry 98 05/29/21 14:27 General: Alert appropriate in no acute distress Respiratory: Able to speak in full sentences, no obvious respiratory distress Skin: No obvious rashes, warm and dry Abdomen: Nicely healing surgical incision sites. Mild abdominal tenderness without rebound or guarding. Not a surgical abdomen. Neurologic: Grossly intact no obvious asymmetries or abnormalities Psych: appropriate insight and affect, cooperative Course Orders Ordered: ED Orders 05/29/21 14:33 COVID19 -Nasal swab/Pre-Proc Stat Complete Blood Count AUTO DIFF Stat Comprehensive Metabolic Panel Stat Discontinued Medications Clindamycin HCl (Clindamycin 150 Mg Capsule) 300 mg PO NOW ONE Stop: 05/29/21 15:41 Sodium Chloride (Normal Saline 0.9%) 1,000 mls @ 1,000 mls/hr IV BOLUS ONE Stop: 05/29/21 15:37 Last Admin: 05/29/21 14:50 Dose: 1,000 mls/hr Documented by: GWEN Ketorolac Tromethamine (Ketorolac 30 Mg/Ml Vial) 15 mg IV NOW ONE Stop: 05/29/21 14:39 Last Admin: 05/29/21 14:49 Dose: 15 mg Documented by: GWEN Vital Signs Vital signs: Vital Signs - 8 hr 05/29/21 14:27 Temperature 98.7 F Pulse Rate 79 Respiratory Rate 19 Blood Pressure 128/86 Pulse Oximetry 98 MDM - Wound/Laceration Lab Data Result diagrams: 05/29/21 14:33 05/29/21 14:33 Labs: Lab Results 05/29/21 05/29/21 05/29/21 Range/Units 14:33 14:33 14:33 WBC 8.7 (4.5-11.0) X10^3/uL RBC 3.89 L (4.0-5.2) X10^6/uL Hgb 11.9 L (12.0-16.0) g/dL Hct 34.6 L (36-46) % MCV 88.9 (80-100) fL MCH 30.5 (26-34) PG MCHC 34.3 (30-36) % RDW 13.2 (11.6-14.8) % Plt Count 453 H (150-400) X10^3/uL Neut % (Auto) 83.6 H (50-75) % Lymph % (Auto) 7.1 L (25-40) % Leslie % (Auto) 7.4 (3-14) % Eos % (Auto) 0.3 L (2-4) % Baso % (Auto) 1.6 (0-2) % Neut # (Auto) 7300 H (9110-1825) /uL Lymph # (Auto) 600 L (3613-7442) /uL Leslie # (Auto) 600 (0-900) /uL Eos # (Auto) 0 (0-450) /uL Baso # (Auto) 100 (0-100) /uL Sodium 132 L (137-145) mmol/L Potassium 4.3 (3.4-5.1) mmol/L Chloride 96 L (98-107) mmol/L Carbon Dioxide 29 (22-32) mmol/L BUN 10 (7-17) mg/dL Creatinine 0.93 (0.52-1.04) mg/dL Estimated GFR > 60.0 (>60) mL/min BUN/Creatinine Ratio 10.8 (6-22) Glucose 98 (70-100) mg/dL Calcium 9.3 (8.4-10.2) mg/dL Total Bilirubin 0.3 (0.2-1.3) mg/dL AST 22 (14-36) IU/L ALT 13 (<35) IU/L Alkaline Phosphatase 80 (38-126) U/L Total Protein 7.3 (6.3-8.2) g/dL Albumin 3.8 (3.5-5.0) g/dL Globulin 3.5 (1.7-4.1) g/dL Albumin/Globulin Ratio 1.1 (1.0-2.8) SARS-CoV-2 (PCR) Positive H (Negative) Imaging Data CT scan - abdomen/pelvis: Radiologist's Impression: FINDINGS:? Image quality:? Excellent.? ? Lung bases:? Unremarkable.? ? Heart:? No significant findings. ? ? ABDOMEN: Liver:? Unremarkable.? ? Gallbladder:? Unremarkable.? ? Biliary ducts:? Unremarkable.? ? Pancreas:? Unremarkable.? ? Spleen:? Unremarkable.? ? Adrenal Glands:? Unremarkable.? ? Kidneys and Ureters:? Unremarkable.? ? ? Stomach and Bowel:? Stomach appears unremarkable.? Interval postsurgical changes of appendectomy.? There is inflammatory stranding in the right lower quadrant, extending into the pelvis, likely related to recent surgery.? There are 2 irregular, possibly rim enhancing collections identified in the lower pelvis measuring 3.2 x 1.8 cm for the more anterior collection and 3.5 by 3.2 cm the more posterior collection (image 64/series 2).? No internal locules of gas.? No definite communication with the surgical site.? These may represent fluid-filled segments of bowel as there are multiple other segments of adjacent bowel demonstrating minimal thickening and increased enhancement.? These may represent secondary reactive changes from recent surgery versus reaction from prior appendicitis.? No free air is noted.? Peritoneum:? No abnormal intraperitoneal fluid.? No free air.? ? Ventral Wall: ? Postsurgical changes of the anterior abdominal wall from recent appendectomy.? There is a rim enhancing fluid collection noted superficially in the subcutaneous soft tissues near the level of the umbilicus measuring approximately 3.0 x 2.0 cm (image 44, series 2) there may be a small component extending deep to the anterior abdominal wall measuring 2.3 cm x 2.1 cm (image 39/series 2 and image 45/series 5).? Is appears to be a bilobed fluid collection. Abdominal Nodes:? No retroperitoneal or mesenteric adenopathy by size criteria.? Vessels:? Aorta and inferior vena cava are normal in size.? ? PELVIS: Pelvic Organs:? Unremarkable.? ? Bladder:? Unremarkable.? ? Pelvic Nodes: No enlarged lymph nodes.? Miscellaneous: No inguinal hernias are seen. ? ? ? Bones:? Unremarkable. ? IMPRESSION:? ? 1. Postsurgical changes from interval appendectomy without definite abscess seen in the right lower quadrant/pelvis.? There are 2 irregular rim enhancing collections noted in the pelvis which do not demonstrate definitive communication with the surgical site.? These may represent focal fluid-filled segments of bowel with increased wall enhancement. ?Several other adjacent segments of bowel in the right lower quadrant also demonstrate mild wall thickening and increased enhancement.? Findings are likely secondary to reactive changes of recent infection and/or surgical procedure. ? 2. At the umbilical port site of recent procedure, there is a bilobed rim enhancing fluid collection involving the subcutaneous fat with extension into the peritoneal cavity directly below the anterior abdominal wall.? Each lobe measures approximately 3.0 cm in size and may represent a postsurgical fluid collection versus early abscess.? Recommend correlation with location of patient's symptoms.? ? ? Findings were discussed with Dr. Velazquez telephonically at 1550hrs. ? Dictated by: Timmy Sosa M.D. on 05/26/2021 at 15:11? ?? MDM Narrative Medical decision making narrative: 46-year-old woman with a ruptured appendicitis followed by minor abscess collections at the surgical incision sites compounded by heavy painful menstrual cycle and now exponential E worse with a COVID positive diagnosis and likely sensitivity to the metronidazole that she has been taking now for 36 hours. Labs are reassuring. Surgical incision sites seem to be healing nicely. Went over signs symptoms and anticipated course of recovery with minimally symptomatic COVID infection. Will ask her to stop the metronidazole and will replace that with clindamycin. She does have follow-up scheduled and will return if symptoms are not improving. Discharge Plan Departure Patient Disposition: Home Clinical Impression: COVID-19 Adverse effect of drug/medicinal Qualifiers: Encounter type: initial encounter Qualified Code(s): T50.905A - Adverse effect of unspecified drugs, medicaments and biological substances, initial encounter Instructions: DI for COVID-19 (Suspected or Confirmed ) Activity Restrictions/Additional Instructions: Thank you for coming in today Your surgical incisions and wounds are all healing nicely Unfortunately, you do have COVID. There are no indications that you need any additional treatment or hospitalization for this. Given the fact that you are vaccinated I anticipate that it will be like a mild cold. I suspect that you are responding adversely to the metronidazole. I am going to suggest to stop this antibiotic and I will replace that with clindamycin with a dose be given evening and ended up the remainder of the prescription tomorrow. The prescription was electronically transmitted to [facility] in [place] If you find that you are getting worse, please do return to the emergency department Prescriptions: New clindamycin HCl 300 mg capsule 300 mg PO TID 5 Days Qty: 15 0RF No Action sulfamethoxazole-trimethoprim [Bactrim DS] 800-160 mg tablet 1 tab PO BID Qty: 10 0RF ondansetron HCl [Zofran] 4 mg tablet 4 mg PO Q6H Qty: 30 0RF magnesium citrate Solution 150 ml PO ONCE Qty: 296 0RF Rx Instructions: as a single dose levofloxacin 500 mg tablet 500 mg PO DAILY Qty: 7 0RF metronidazole 500 mg tablet 500 mg PO TID Qty: 21 0RF tranexamic acid 650 mg tablet 2 tab PO TID 0RF celecoxib [Celebrex] 200 mg Capsule 200 mg PO BID Qty: 20 0RF ciprofloxacin HCl 250 mg Tablet 500 mg PO 0700,2100 Qty: 10 0RF Referrals: Veronica Robertson PA-C [Primary Care Provider] -
[2021-05-29] MEDS: KETOROLAC 30 MG/ML VIAL 15 MG IV (14:49)
[2021-05-29 14:50] LABS: Add Manual Diff / Slide Review NO; Basophils Absolute Auto 100 /uL (0-100); Basophils Percent Auto 1.6 % (0-2); Eosinophils Absolute Auto 0 /uL (0-450); Eosinophils Percent Auto 0.3 % (2-4); Hematocrit 34.6 % (36-46); Hemoglobin 11.9 g/dL (12.0-16.0); Lymphocytes Absolute Auto 600 /uL (1100-4500); Lymphocytes Percent Auto 7.1 % (25-40); Mean Corpuscular HGB Conc 34.3 % (30-36); Mean Corpuscular Hemoglobin 30.5 PG (26-34); Mean Corpuscular Volume 88.9 fL (80-100); Monocytes Absolute Auto 600 /uL (0-900); Monocytes Percent Auto 7.4 % (3-14); Neutrophils Absolute Auto 7300 /uL (1500-7000); Neutrophils Percent Auto 83.6 % (50-75); Platelet Count 453 X10^3/uL (150-400); Red Blood Cell Count 3.89 X10^6/uL (4.0-5.2); Red Cell Distribution Width 13.2 % (11.6-14.8); White Blood Cell Count 8.7 X10^3/uL (4.5-11.0)
[2021-05-29] MEDS: SODIUM CHLORIDE 0.9% 1,000 ML 1000 ML IV (14:50)
[2021-05-29 14:52] LABS: Alanine Aminotransferase 13 IU/L (<35); Albumin 3.8 g/dL (3.5-5.0); Albumin Globulin Ratio 1.1 (1.0-2.8); Alkaline Phosphatase 80 U/L (38-126); Aspartate Aminotransferase 22 IU/L (14-36); BUN Creatinine Ratio 10.8 (6-22); Bilirubin Total 0.3 mg/dL (0.2-1.3); Blood Urea Nitrogen 10 mg/dL (7-17); COVID19 -Nasal RAPID POSITIVE (Negative); Calcium 9.3 mg/dL (8.4-10.2); Carbon Dioxide 29 mmol/L (22-32); Chloride 96 mmol/L (98-107); Estimated Glomerular Filt Rate > 60.0 mL/min (>60); Globulin 3.5 g/dL (1.7-4.1); Glucose 98 mg/dL (70-100); HEMOLYSIS 17 (0-50); Potassium 4.3 mmol/L (3.4-5.1); Sodium 132 mmol/L (137-145); Total Protein 7.3 g/dL (6.3-8.2)
[2021-05-29] MEDS: CLINDAMYCIN 150 MG CAPSULE 300 MG PO (15:44)
[2021-05-29 15:51] VITALS: BP 108/70; PULSE 74; RESP 15; O2SAT 99
== END 2021-05-29 15:51 | disposition home or self-care (01) ==
PROVIDERS: Emergency Provider Emergency Medicine; PCP Physician Assistant Medical
DX: U07.1 COVID-19 (principal); Z88.0 Allergy status to penicillin
CPT/HCPCS: 36415; 80053; 85025; 87635; 96361; 96374; 99284; C9803; J1885

== ENCOUNTER 2021-06-03 16:53 | Emergency (ER) | payer OTHER, SELFPAY ==
[2021-06-03 17:08] VITALS: BP 111/77; PULSE 76; RESP 18; TEMP 36.1; O2SAT 99; BMI 20.1
--- NOTE | 2021-06-03 17:35 | DI.CT.S_ITS ---
PROCEDURE: CT ABDOMEN PELVIS W CON INDICATIONS: abd pain, sp appendectomy 3 weeks ago, redness at site, TECHNIQUE: After the administration of intravenous contrast, axial sections acquired from the lung bases to the pubic symphysis. Coronal and sagittal reformats were performed. For radiation dose reduction, the following was used: automated exposure control, adjustment of mA and/or kV according to patient size. COMPARISON: [facility], CT, CT ABDOMEN PELVIS W CON, 05/13/2021, 21:50. [facility], CT, CT ABDOMEN PELVIS W CON, 05/26/2021, 12:41. FINDINGS: Image quality: Excellent. Lung bases: Unremarkable. Heart: No significant findings. ABDOMEN: Liver: Unremarkable. Gallbladder: Unremarkable. Biliary ducts: Unremarkable. Pancreas: Unremarkable. Spleen: Unremarkable. Adrenal Glands: Unremarkable. Kidneys and Ureters: Unremarkable. Stomach and Bowel: Stomach, small bowel loops, and colon are unremarkable. Moderate fecal debris in the right colon. Appendectomy suture appears intact. Peritoneum: No abnormal intraperitoneal fluid. No free air. No evidence of intraperitoneal abscess Ventral Wall: If there is mild induration at the umbilical port site without evidence of abscess. Abdominal Nodes: No retroperitoneal or mesenteric adenopathy by size criteria. Vessels: Aorta and inferior vena cava are normal in size. PELVIS: Pelvic Organs: Unremarkable. Bladder: Unremarkable. Pelvic Nodes: No enlarged lymph nodes. Miscellaneous: No hernias are seen. Bones: Unremarkable. IMPRESSION: 1. No evidence of free fluid or intraperitoneal abscess. 2. Periumbilical subcutaneous induration without recurrent or residual abscess. 3. Moderate fecal debris in the right colon. Appendectomy suture noted. Approved by: Alberto Berumen M.D. on 06/03/2021 at 17:33
[2021-06-03 17:38] LABS: Add Manual Diff / Slide Review NO; Basophils Absolute Auto 100 /uL (0-100); Basophils Percent Auto 0.8 % (0-2); Eosinophils Absolute Auto 200 /uL (0-450); Eosinophils Percent Auto 2.6 % (2-4); Hematocrit 34.9 % (36-46); Lymphocytes Absolute Auto 1400 /uL (1100-4500); Lymphocytes Percent Auto 21.1 % (25-40); Mean Corpuscular HGB Conc 34.4 % (30-36); Mean Corpuscular Hemoglobin 30.4 PG (26-34); Mean Corpuscular Volume 88.5 fL (80-100); Monocytes Absolute Auto 300 /uL (0-900); Monocytes Percent Auto 5.2 % (3-14); Neutrophils Absolute Auto 4700 /uL (1500-7000); Neutrophils Percent Auto 70.3 % (50-75); Platelet Count 379 X10^3/uL (150-400); Red Blood Cell Count 3.94 X10^6/uL (4.0-5.2); Red Cell Distribution Width 12.7 % (11.6-14.8); White Blood Cell Count 6.7 X10^3/uL (4.5-11.0)
[2021-06-03 17:49] LABS: Alanine Aminotransferase 12 IU/L (<35); Albumin 4.1 g/dL (3.5-5.0); Albumin Globulin Ratio 1.1 (1.0-2.8); Alkaline Phosphatase 70 U/L (38-126); Aspartate Aminotransferase 23 IU/L (14-36); Bilirubin Total 0.5 mg/dL (0.2-1.3); Blood Urea Nitrogen 7 mg/dL (7-17); Calcium 9.8 mg/dL (8.4-10.2); Carbon Dioxide 31 mmol/L (22-32); Chloride 101 mmol/L (98-107); Estimated Glomerular Filt Rate > 60.0 mL/min (>60); Globulin 3.6 g/dL (1.7-4.1); Glucose 102 mg/dL (70-100); HEMOLYSIS < 15 (0-50); Lipase 245 U/L (23-300); Potassium 3.8 mmol/L (3.4-5.1); Sodium 137 mmol/L (137-145); Total Protein 7.7 g/dL (6.3-8.2)
[2021-06-03 17:51] LABS: COVID19 -Nasal RAPID POSITIVE (Negative)
[2021-06-03 19:42] VITALS: BP 108/63; PULSE 66; TEMP 37.2; O2SAT 100
--- NOTE | 2021-06-03 19:48 | ED.ABDPAIN ---
HPI - Abdominal Pain General Chief Complaint: Abdominal Pain Stated Complaint: HAD APPENDECTOMY 3WKS BELLY PAIN Time Seen by Provider: 06/03/21 19:39 Source: patient Mode of arrival: Ambulatory History of Present Illness HPI narrative: Patient is a 46-year-old female who had appendectomy May 14 for, perforated appendicitis she subsequently had drains placed which were then removed. She developed a periumbilical abscess which was drained in the office 1 week ago. She finished clindamycin 1 or 2 days ago. She said yesterday her abdomen and area of her previous abscess with soft today she noted is this is that it is a little hard. She has not had any redness she has no fever she is not nauseated or vomiting. But she has had many complications with this procedure and is concerned. Related Data Home Medications Medication Instructions Recorded Confirmed tranexamic acid 2 tab PO TID 05/14/21 06/02/21 Previous Rx's Medication Instructions Recorded celecoxib 200 mg capsule (Celebrex) 200 mg PO BID #20 cap 05/14/21 ciprofloxacin HCl 250 mg tablet 500 mg PO 0700,2100 #10 tab 05/14/21 magnesium citrate 150 ml PO ONCE #296 ml 05/18/21 ondansetron HCl 4 mg tablet 4 mg PO Q6H #30 tab 05/18/21 (Zofran) sulfamethoxazole 800 1 tab PO BID #10 tab 05/25/21 mg-trimethoprim 160 mg tablet (Bactrim DS) levofloxacin 500 mg tablet 500 mg PO DAILY #7 tab 05/27/21 metronidazole 500 mg tablet 500 mg PO TID #21 tab 05/27/21 Allergies Allergy/AdvReac Type Severity Reaction Status Date / Time Penicillins Allergy Intermediate Rash Verified 06/02/21 10:59 metronidazole AdvReac Intermediate Nausea Verified 06/02/21 10:59 Review of Systems Review of Systems Narrative: GENERAL: Denies chills, fatigue, malaise, fever, sweats, travel HEENT: Denies sinus pain, ear pain, sore throat, difficulty swallowing, neck pain RESPIRATORY: Denies dyspnea, cough, wheezing, hemoptysis, sputum. CARDIOVASCULAR: Denies chest pain, palpitations, orthopnea, edema GASTROINTESTINAL: see HPI : Denies dysuria, frequency, incontinence, hematuria, urinary retention, flank pain. MUSCULOSKELETAL: Denies weakness, joint pain, or bony pain SKIN: See HPI NEUROLOGIC: Denies weakness, dizziness, headache, numbness, change in speech, confusion PSYCHIATRIC: No concerning psychosocial issues. 12 point review of systems is negative except for those stated above and HPI Patient History Surgical History (Updated 06/03/21 @ 23:51 by Eloina Ricardo DO) Status post appendectomy Social History household members: spouse Smoking Status: Never smoker Smoking Status: Never smoker alcohol intake frequency: 0-2 drinks per day Substance Use Type: does not use Exam Initial Vital Signs Initial Vital Signs: Vital Signs Temperature 97 F L 06/03/21 17:08 Pulse Rate 76 06/03/21 17:08 Respiratory Rate 18 06/03/21 17:08 Blood Pressure 111/77 06/03/21 17:08 Pulse Oximetry 99 06/03/21 17:08 GENERAL: Well-appearing, well-nourished and in no acute distress. HEENT: Head atraumatic,EOMI, pupils reactive, face symmetric, moist mucous membranes CARDIOVASCULAR: Regular rate and rhythm without murmurs, rubs or gallops. RESPIRATORY: Breath sounds equal bilaterally, no wheezes rales or rhonchi. ABDOMEN: Soft, nontender. Normoactive bowel sounds all 4 quadrants. No guarding or rebound. EXTREMITIES: Normal range of motion, no clubbing or edema. Neurovascularly intact NEUROLOGICAL: Alert and oriented x4.Normal gait and speech. SKIN: 2 cm x 3 cm hardening inferior at the umbilicus. There is no erythema no induration fluctuation. Incision site has not close Course Orders Ordered: ED Orders 06/03/21 17:10 COVID19 -Nasal swab/Pre-Proc Stat 06/03/21 17:16 Complete Blood Count AUTO DIFF Stat Comprehensive Metabolic Panel Stat Lipase Stat 06/03/21 17:35 CT abdomen pelvis w con Stat Discontinued Medications Ketorolac Tromethamine (Ketorolac 30 Mg/Ml Vial) 15 mg IV NOW ONE Stop: 06/03/21 20:10 Last Admin: 06/03/21 20:17 Dose: 15 mg Documented by: KIP Vital Signs Vital signs: Vital Signs - 8 hr 06/03/21 17:08 06/03/21 19:42 Temperature 97 F L 98.9 F Pulse Rate 76 66 Respiratory Rate 18 Blood Pressure 111/77 108/63 Pulse Oximetry 99 100 MDM - Abdominal Pain Lab Data Result diagrams: 06/03/21 17:16 06/03/21 17:16 Labs: Lab Results 06/03/21 06/03/21 06/03/21 Range/Units 17:10 17:16 17:16 WBC 6.7 (4.5-11.0) X10^3/uL RBC 3.94 L (4.0-5.2) X10^6/uL Hgb 12.0 (12.0-16.0) g/dL Hct 34.9 L (36-46) % MCV 88.5 (80-100) fL MCH 30.4 (26-34) PG MCHC 34.4 (30-36) % RDW 12.7 (11.6-14.8) % Plt Count 379 (150-400) X10^3/uL Neut % (Auto) 70.3 (50-75) % Lymph % (Auto) 21.1 L (25-40) % [place] % (Auto) 5.2 (3-14) % Eos % (Auto) 2.6 (2-4) % Baso % (Auto) 0.8 (0-2) % Neut # (Auto) 4700 (0354-7173) /uL Lymph # (Auto) 1400 (8157-7272) /uL [place] # (Auto) 300 (0-900) /uL Eos # (Auto) 200 (0-450) /uL Baso # (Auto) 100 (0-100) /uL Sodium 137 (137-145) mmol/L Potassium 3.8 (3.4-5.1) mmol/L Chloride 101 (98-107) mmol/L Carbon Dioxide 31 (22-32) mmol/L BUN 7 (7-17) mg/dL Creatinine 0.78 (0.52-1.04) mg/dL Estimated GFR > 60.0 (>60) mL/min BUN/Creatinine Ratio 9.0 (6-22) Glucose 102 H (70-100) mg/dL Calcium 9.8 (8.4-10.2) mg/dL Total Bilirubin 0.5 (0.2-1.3) mg/dL AST 23 (14-36) IU/L ALT 12 (<35) IU/L Alkaline Phosphatase 70 (38-126) U/L Total Protein 7.7 (6.3-8.2) g/dL Albumin 4.1 (3.5-5.0) g/dL Globulin 3.6 (1.7-4.1) g/dL Albumin/Globulin Ratio 1.1 (1.0-2.8) Lipase 245 (23-300) U/L SARS-CoV-2 (PCR) Positive H (Negative) Point of care testing: Point of Care Testing Test Results Negative Urine Dip Bedside Urine Glucose Negative Bedside Urine Bilirubin - Negative Bedside Urine Ketone - Negative Urine Specific [place] 1.015 Bedside Urine Occult Blood - Negative Bedside Urine pH 7.0 Bedside Urine Protein - Negative Bedside Urine Urobilinogen - Negative Bedside Urine Nitrite - Negative Bedside Urine Leukocytes - Negative Esterase Imaging Data CT scan - abdomen/pelvis: Radiologist's Impression: PROCEDURE:? CT ABDOMEN PELVIS W CON ? INDICATIONS:? abd pain, sp appendectomy 3 weeks ago, redness at site, ? TECHNIQUE:? After the administration of intravenous contrast, axial sections acquired from the lung bases to the pubic symphysis.? Coronal and sagittal reformats were performed.? For radiation dose reduction, the following was used:? automated exposure control, adjustment of mA and/or kV according to patient size.? ? COMPARISON:? [facility], CT, CT ABDOMEN PELVIS W CON, 05/13/2021, 21:50.? [facility], CT, CT ABDOMEN PELVIS W CON, 05/26/2021, 12:41. ? FINDINGS:? Image quality:? Excellent.? ? Lung bases:? Unremarkable. Heart:? No significant findings. ? ABDOMEN: Liver:? Unremarkable.? ? Gallbladder:? Unremarkable.? ? Biliary ducts:? Unremarkable.? ? Pancreas:? Unremarkable.? ? Spleen:? Unremarkable.? ? Adrenal Glands:? Unremarkable.? ? Kidneys and Ureters:? Unremarkable.? ? ? Stomach and Bowel:? Stomach, small bowel loops, and colon are unremarkable.? Moderate fecal debris in the right colon.? Appendectomy suture appears intact. Peritoneum:? No abnormal intraperitoneal fluid.? No free air.? No evidence of intraperitoneal abscess ? Ventral Wall:? If there is mild induration at the umbilical port site without evidence of abscess. Abdominal Nodes:? No retroperitoneal or mesenteric adenopathy by size criteria.? Vessels:? Aorta and inferior vena cava are normal in size.? ? PELVIS: Pelvic Organs:? Unremarkable.? ? Bladder:? Unremarkable.? ? Pelvic Nodes: No enlarged lymph nodes.? Miscellaneous: No hernias are seen. ? ? ? Bones:? Unremarkable.? IMPRESSION:? ? 1. No evidence of free fluid or intraperitoneal abscess.? 2. Periumbilical subcutaneous induration without recurrent or residual abscess.? 3. Moderate fecal debris in the right colon.? Appendectomy suture noted.? Approved by: Alberto Berumen M.D. on 06/03/2021 at 17:33? MDM Narrative Medical decision making narrative: Patient's blood work CT are or during. She does have some hardening around her periumbilical area but no sign of infection. 800-Dr. fine, time patient's symptoms test results at this time does not think antibiotics would probably scar tissue recommend watchful waiting. I discussed all findings with the patient and spouse, Education has been performed regarding treatment plan, diagnosis, warning signs and symptoms and all concerns have been addressed. Verbally agree with and understood all of the above. Discharge Plan Departure Patient Disposition: Home Clinical Impression: Scar tissue Instructions: DI for Skin Abscess Activity Restrictions/Additional Instructions: *You have been diagnosed with postsurgical changes *What to do: At this time surgery on both agree no antibiotics. Probably scar tissue. May try heating pad. *Continue to take medications as directed *Follow up with your primary care provider in 2-3 days or call [phone] *Return to ER if you should have increased redness, increased swelling, fever, drainage or any new, worsening or concerning symptoms Prescriptions: No Action sulfamethoxazole-trimethoprim [Bactrim DS] 800-160 mg tablet 1 tab PO BID Qty: 10 0RF ondansetron HCl [Zofran] 4 mg tablet 4 mg PO Q6H Qty: 30 0RF magnesium citrate Solution 150 ml PO ONCE Qty: 296 0RF Rx Instructions: as a single dose levofloxacin 500 mg tablet 500 mg PO DAILY Qty: 7 0RF metronidazole 500 mg tablet 500 mg PO TID Qty: 21 0RF tranexamic acid 650 mg tablet 2 tab PO TID 0RF celecoxib [Celebrex] 200 mg Capsule 200 mg PO BID Qty: 20 0RF ciprofloxacin HCl 250 mg Tablet 500 mg PO 0700,2100 Qty: 10 0RF Referrals: Veronica Robertson PA-C [Primary Care Provider] -
[2021-06-03] MEDS: KETOROLAC 30 MG/ML VIAL 15 MG IV (20:17)
== END 2021-06-03 20:25 | disposition home or self-care (01) ==
PROVIDERS: Emergency Medicine; Emergency Provider Emergency Medicine; PCP Physician Assistant Medical
DX: L90.5 Scar conditions and fibrosis of skin (principal); Z98.890 Other specified postprocedural states; Z20.822 Contact with and (suspected) exposure to COVID-19
CPT/HCPCS: 36415; 74177; 80053; 81003; 81025; 83690; 85025; 87635; 96374; 99284; C9803; J1885; Q9967